=== PATIENT | male | born 1950 ===

== ENCOUNTER 2021-02-11 23:33 | Emergency (ER) | payer MEDICARE, OTHER ==
--- NOTE | 2021-02-12 00:21 | EDM.PDOC ---
ED HPI GENERAL MEDICAL PROBLEM - General Chief Complaint: General Stated Complaint: FEVER COUGH TROUBLE URINATING Time Seen by Provider: 02/11/21 23:44 Source of Information: Reports: Patient, Family ( + son), Old Records (Lab results 01/10/2021) History Limitations: Reports: No Limitations - History of Present Illness INITIAL COMMENTS - FREE TEXT/NARRATIVE: Mr. Hogan is a very pleasant 70-year-old gentleman who now presents the ED due to fatigue, a nonproductive cough, an intermittent fever, and difficulty urinating. He states that he has difficulty initiating urination and has a weak stream. He denies having dysuria, urinary frequency, or urgency. He states that he developed these symptoms in late December, and was then diagnosed with COVID-19 on 01/10/2021. At that time, he was also diagnosed with pneumonia and a UTI, and treated with Augmentin, however, in reviewing his lab work from that time, I see that while his chest x-ray demonstrated a small infiltrate, he did not have leukocytosis, and his urinalysis was not consistent with a UTI. The urine culture ultimately grew mixed arthur consistent with contamination. The patient states that his symptoms have persisted unabated. The patient states that by the time he was diagnosed with COVID-19, he had been symptomatic too long to qualify for treatment with monoclonal antibodies, and that he was not hypoxemic, therefore did not qualify for treatment with corticosteroids. He states that he had more difficulty than usual urinating tonight, that his cough has persisted, and that he had a fever of 101 degrees. The patient's also noted that the patient developed lower extremity edema a few weeks ago. Here in the ED, the patient's initial BP is found to be modestly elevated at 153/80, otherwise, he is hemodynamically stable, afebrile, saturating 95% on room air. He appears to be comfortable while semirecumbent on the gurney, in no acute distress. Throughout the patient's illness, he denies having chest pain or discomfort, palpitations, or dyspnea. He reports that he vomited a few days ago, but none since, and that he is often constipated. He denies having a recent sore throat, ear pain, nasal or sinus congestion, diarrhea, abdominal pain, recent weight gain or weight loss, recent bloody bowel movements or black bowel movements, recent joint aches, headaches, or rashes. The patient's PCP is Elsa Marrero NP. Generalized Pain Score (Numeric/FACES): 3 - Related Data Allergies Allergy/AdvReac Type Severity Reaction Status Date / Time No Known Allergies Allergy Verified 02/11/21 23:50 Home Meds: Home Meds Tamsulosin HCl [Flomax] 1 cap PO QAM #30 cap.er.24h 02/12/21 [Rx] Past Medical History Cardiovascular History: Reports: Hypertension Genitourinary History: Reports: Retention, Urinary Endocrine/Metabolic History: Reports: Diabetes, Type II - Infectious Disease History Infectious Disease History: Reports: Novel Coronavirus (dx'd 01/10/2021) - Past Surgical History HEENT Surgical History: Reports: Detached Retina (right), Radial Keratotomy (right) Social & Family History - Tobacco Use Tobacco Use Status *Q: Former Tobacco User Years of Tobacco use: 18 Packs/Tins Daily: 1 Month/Year Tobacco Last Used: Quit 1984 Tobacco Use Comment: Started smoking 1966 Second Hand Smoke Exposure: No - Caffeine Use Caffeine Use: Reports: Coffee - Alcohol Use Alcohol Use History: Yes Alcohol Use Frequency: Socially - Recreational Drug Use Recreational Drug Use: Yes Drug Use in Last 12 Months: No Recreational Drug Type: Reports: Marijuana/Hashish (last smoked when he was young) - Living Situation & Occupation Living situation: Reports: , with Spouse Occupation: Retired ED ROS GENERAL - Review of Systems Review Of Systems: Comprehensive ROS is negative, except as noted in HPI. ED EXAM, GENERAL - Physical Exam Exam: See Below Exam Limited By: No Limitations General Appearance: Alert, WD/WN, No Apparent Distress Eye Exam: Bilateral Eye: EOMI, Normal Inspection Ears: Normal External Exam, Hearing Grossly Normal Nose: Normal Inspection Throat/Mouth: Normal Inspection, Normal Lips, Normal Voice, No Airway Compromise Head: Atraumatic, Normocephalic Neck: Normal Inspection, Full Range of Motion Respiratory/Chest: No Respiratory Distress, Lungs Clear, Normal Breath Sounds, No Accessory Muscle Use. No: Decreased Breath Sounds, Crackles, Rhonchi, Wheezing, Stridor, Prolonged Expiration Cardiovascular: Normal Peripheral Pulses, Regular Rate, Rhythm, No Gallop, No JVD, No Rub, Systolic Murmur (Grade 2/6, heard best at the left lower sternal border/apex, consistent with tricuspid or mitral regurgitation) Peripheral Pulses: 3+: Radial (L), Radial (R) GI/Abdominal: Normal Bowel Sounds, Soft, Non-Tender, No Organomegaly, No Distention, No Abnormal Bruit, No Mass Back Exam: Normal Inspection, Full Range of Motion, NT Extremities: Normal Inspection, Normal Range of Motion, Normal Capillary Refill, Other (1+ pitting pretibial edema bilaterally) Neurological: Alert, Oriented, Normal Cognition, No Motor/Sensory Deficits Psychiatric: Normal Affect Skin Exam: Warm, Dry, Intact, Normal Color, No Rash #1 Interpretation EKG Date: 02/12/21 Time: 00:23 Rhythm: NSR Rate (Beats/Min): 85 Antonito: Normal P-Wave: Present QRS: Normal ST-T: Normal QT: Normal Comparison: NA - No Prior EKG Course - Vital Signs Last Recorded V/S: Last Vital Signs Temp 37.5 C 02/11/21 23:45 Pulse 98 02/11/21 23:45 Resp 20 02/11/21 23:45 BP 153/80 H 02/11/21 23:45 Pulse Ox 95 02/11/21 23:45 - Orders/Labs/Meds Orders: Active Orders 24 hr Category Date Time Status Bladder Scan [RC] ASDIRECTED Care 02/12/21 00:18 Active EKG Documentation Completion [RC] STAT Care 02/12/21 00:16 Active Insert Zimmerman Catheter [Insert Urinary Catheter] [OM.PC] Care 02/12/21 00:45 Ordered Q24H Urinary Catheter Assessment [RC] ASDIRECTED Care 02/12/21 00:34 Active Ang Chest [CT] Stat Exams 02/12/21 01:14 Taken Chest 2V [CR] Stat Exams 02/12/21 00:15 Taken Sodium Chloride 0.9% [Normal Saline] 1,000 ml Med 02/12/21 01:15 Active IV ASDIRECTED Sodium Chloride 0.9% [Normal Saline] 100 ml Med 02/12/21 01:30 Active IV ASDIRECTED Sodium Chloride 0.9% [Saline Flush] Med 02/12/21 01:30 Active 10 ml FLUSH BOLUS Medication Orders Sodium Chloride (Normal Saline) 1,000 mls @ 150 mls/hr IV ASDIRECTED [facility] Last Admin: 02/12/21 01:35 Dose: 150 mls/hr Documented by: CORINNA Sodium Chloride (Normal Saline) 100 mls @ 60 drops/min IV ASDIRECTED [facility] Sodium Chloride (Sodium Chloride 0.9% 10 Ml Syringe) 10 ml FLUSH BOLUS [facility] Labs: Laboratory Tests 02/12/21 02/12/21 02/12/21 Range/Units 00:28 00:31 00:31 WBC 4.48 (4.23-9.07) K/mm3 RBC 4.21 L (4.63-6.08) M/mm3 Hgb 11.2 L D (13.7-17.5) gm/dl Hct 34.3 L (40.1-51.0) % MCV 81.5 (79.0-92.2) fl MCH 26.6 (25.7-32.2) pg MCHC 32.7 (32.2-35.5) g/dl RDW Std Deviation 41.4 (35.1-43.9) fL Plt Count 243 (163-337) K/mm3 MPV 10.0 (9.4-12.3) fl Neutrophils % (Manual) 62 H (40-60) % Band Neutrophils % 1 (0-10) % Lymphocytes % (Manual) 28 (20-40) % Atypical Lymphs % 0 % Monocytes % (Manual) 7 (2-10) % Eosinophils % (Manual) 2 (0.8-7.0) % Basophils % (Manual) 0 L (0.2-1.2) Platelet Estimate Adequate RBC Morph Comment Normal D-Dimer, Quantitative (0.19-0.50) mg/L Sodium 134 L (136-145) mEq/L Potassium 4.4 (3.5-5.1) mEq/L Chloride 99 (98-107) mEq/L Carbon Dioxide 26 (21-32) mEq/L Anion Gap 13.4 (5-15) BUN 11 (7-18) mg/dL Creatinine 1.2 (0.7-1.3) mg/dL Est Cr Clr Drug Dosing 62.87 mL/min Estimated GFR (MDRD) 60 (>60) mL/min BUN/Creatinine Ratio 9.2 L (14-18) Glucose 270 H (70-99) mg/dL Calcium 8.5 (8.5-10.1) mg/dL Magnesium 2.0 (1.8-2.4) mg/dL Total Bilirubin 0.6 (0.2-1.0) mg/dL AST 36 (15-37) U/L ALT 30 (16-63) U/L Alkaline Phosphatase 65 (46-116) U/L Troponin I < 0.017 (0.00-0.056) ng/mL NT-Pro-B Natriuret Pep (0-125) pg/mL Total Protein 7.0 (6.4-8.2) g/dl Albumin 2.8 L (3.4-5.0) g/dl Globulin 4.2 gm/dL Albumin/Globulin Ratio 0.7 L (1-2) TSH 3rd Generation 0.749 (0.358-3.74) uIU/mL Urine Color Yellow (Yellow) Urine Appearance Clear (Clear) Urine pH 6.5 (5.0-8.0) Ur Specific [place] 1.020 (1.005-1.030) Urine Protein 1+ H (Negative) Urine Glucose (UA) 3+ H (Negative) Urine Ketones Negative (Negative) Urine Occult Blood Negative (Negative) Urine Nitrite Negative (Negative) Urine Bilirubin Negative (Negative) Urine Urobilinogen 2.0 H (0.2-1.0) Ur Leukocyte Esterase Negative (Negative) Urine RBC 0-5 (0-5) /hpf Urine WBC 0-5 (0-5) /hpf Ur Epithelial Cells Not seen (0-5) /hpf Urine Bacteria Few (FEW) /hpf Urine Mucus Not seen (FEW) /hpf Influenza Type A RNA (NEGATIVE) Influenza Type B RNA (NEGATIVE) SARS-CoV-2 RNA (DAR) (NEGATIVE) 02/12/21 02/12/21 02/12/21 Range/Units 00:31 00:31 00:43 WBC (4.23-9.07) K/mm3 RBC (4.63-6.08) M/mm3 Hgb (13.7-17.5) gm/dl Hct (40.1-51.0) % MCV (79.0-92.2) fl MCH (25.7-32.2) pg MCHC (32.2-35.5) g/dl RDW Std Deviation (35.1-43.9) fL Plt Count (163-337) K/mm3 MPV (9.4-12.3) fl Neutrophils % (Manual) (40-60) % Band Neutrophils % (0-10) % Lymphocytes % (Manual) (20-40) % Atypical Lymphs % % Monocytes % (Manual) (2-10) % Eosinophils % (Manual) (0.8-7.0) % Basophils % (Manual) (0.2-1.2) Platelet Estimate RBC Morph Comment D-Dimer, Quantitative 4.51 H (0.19-0.50) mg/L Sodium (136-145) mEq/L Potassium (3.5-5.1) mEq/L Chloride (98-107) mEq/L Carbon Dioxide (21-32) mEq/L Anion Gap (5-15) BUN (7-18) mg/dL Creatinine (0.7-1.3) mg/dL Est Cr Clr Drug Dosing mL/min Estimated GFR (MDRD) (>60) mL/min BUN/Creatinine Ratio (14-18) Glucose (70-99) mg/dL Calcium (8.5-10.1) mg/dL Magnesium (1.8-2.4) mg/dL Total Bilirubin (0.2-1.0) mg/dL AST (15-37) U/L ALT (16-63) U/L Alkaline Phosphatase (46-116) U/L Troponin I (0.00-0.056) ng/mL NT-Pro-B Natriuret Pep 139 H (0-125) pg/mL Total Protein (6.4-8.2) g/dl Albumin (3.4-5.0) g/dl Globulin gm/dL Albumin/Globulin Ratio (1-2) TSH 3rd Generation (0.358-3.74) uIU/mL Urine Color (Yellow) Urine Appearance (Clear) Urine pH (5.0-8.0) Ur Specific [place] (1.005-1.030) Urine Protein (Negative) Urine Glucose (UA) (Negative) Urine Ketones (Negative) Urine Occult Blood (Negative) Urine Nitrite (Negative) Urine Bilirubin (Negative) Urine Urobilinogen (0.2-1.0) Ur Leukocyte Esterase (Negative) Urine RBC (0-5) /hpf Urine WBC (0-5) /hpf Ur Epithelial Cells (0-5) /hpf Urine Bacteria (FEW) /hpf Urine Mucus (FEW) /hpf Influenza Type A RNA Negative (NEGATIVE) Influenza Type B RNA Negative (NEGATIVE) SARS-CoV-2 RNA (DAR) Negative (NEGATIVE) Meds: Medications Generic Name Dose Route Start Last Admin Trade Name Freq PRN Reason Stop Dose Admin Sodium Chloride 1,000 mls @ 150 mls/hr 02/12/21 01:15 02/12/21 01:35 Normal Saline IV 150 mls/hr ASDIRECTED KOLTON Administration Sodium Chloride 100 mls @ 60 drops/min 02/12/21 01:30 Normal Saline IV ASDIRECTED KOLTON Sodium Chloride 10 ml 02/12/21 01:30 Sodium Chloride 0.9% 10 Ml Syringe FLUSH BOLUS KOLTON Discontinued Medications Generic Name Dose Route Start Last Admin Trade Name Freq PRN Reason Stop Dose Admin Iopamidol 100 ml 02/12/21 01:22 Iopamidol 755 Mg/Ml 100 Ml Bottle IVPUSH 02/12/21 01:23 ONETIME ONE Tamsulosin HCl 0.4 mg 02/12/21 00:34 02/12/21 01:35 Tamsulosin 0.4 Mg Cap.Er PO 02/12/21 00:35 0.4 mg ONETIME ONE Administration - Re-Assessments/Exams Free Text/Narrative Re-Assessment/Exam: 02/12/21 00:18 As above, the patient developed fatigue, a dry cough, a fever, and difficulty urinating in late November or early December, and was diagnosed with COVID-19 on 01/10/2021. His symptoms have persisted. His difficulty urinating is worse tonight than usual. He is afebrile. On physical examination, a grade 2/6 systolic murmur is heard best at the left lower sternal border and apex, consistent with either mild tricuspid or mitral valve regurgitation. With respect to his persistent fatigue, nonproductive cough, and intermittent fever, the patient is likely suffering from Ongoing Symptomatic COVID-19, also known as "Long COVID", although it is possible that he has COVID myocarditis. I have ordered a work-up that includes numerous blood tests, a swab for the SARS-CoV-2 virus and influenza A + B viruses, a chest x-ray, and an ECG. With respect to the patient's difficulty urinating, he likely has undiagnosed BPH. I have ordered a bladder scan, and if he has urinary retention, we will need to place a Zimmerman catheter. We will check a urinalysis. 02/12/21 00:34 Notified by Alysha DUMONT that the patient's bladder scan revealed 445 mL, and that he was only able to urinate 20 mL. I have ordered a Zimmerman catheter to leg bag, and the urine sample will be collected from that. I will start the patient on tamsulosin. 02/12/21 01:12 Two-view chest radiograph appears to be grossly normal. The cardiac silhouette is within normal limits. No pulmonary vascular congestion. No pleural effusions. No focal infiltrate. No pneumothorax. Formal read per the Radiologist pending. 02/12/21 01:15 The patient's D-dimer has returned substantially elevated at 4.51. I have ordered a CT angiogram of the chest to evaluate for PE, along with some IV fluid. 02/12/21 01:38 The patient's CBC is remarkable for an H/H slightly depressed at 11.2/34.3, with the remainder of his CBC being unremarkable. His CMP is remarkable for slight hyponatremia of 134, and hyperglycemia of 270, with the remainder of his CMP being unremarkable. His magnesium level is within normal limits of 2.0. His TSH is within normal limits at 0.749. His troponin is undetectably low. His urinalysis is remarkable for 3+ glucose, and is otherwise unremarkable. His swab for the SARS-CoV-2 virus and influenza A + B viruses is negative. 02/12/21 02:52 CT angiogram of the chest is read by Kavita as: Bilateral focal areas of parenchymal opacification is, more pronounced on the left. [sic] 2. No evidence of pulmonary embolus. 02/12/21 03:06 Test results discussed with the patient, his , and son. Since the patient has cleared the SARS-CoV-2 virus, his symptoms of fatigue, nonproductive cough, and intermittent fever appear to be due to Ongoing Symptomatic COVID-19. His urinary retention is most likely due to BPH. I will submit a prescription for tamsulosin to the pharmacy of his choice, and refer him to Dr. Banegas for further evaluation. Departure - Departure Time of Disposition: 03:07 Disposition: Home, Self-Care 01 Condition: Good Clinical Impression: Urinary retention, Hyperglycemia due to type 2 diabetes mellitus, Ongoing symptomatic disease due to COVID-19 virus - Discharge Information *PRESCRIPTION DRUG MONITORING PROGRAM REVIEWED*: Not Applicable *COPY OF PRESCRIPTION DRUG MONITORING REPORT IN PATIENT ALVINO: Not Applicable Prescriptions: Tamsulosin HCl [Flomax] 1 cap PO QAM #30 cap.er.24h Instructions: Indwelling Urinary Catheter Care, Adult, Acute Urinary Retention, Male, [id number] Referrals: Elsa Marrero NP [Primary Care Provider] - Olayinka Banegas MD [Ordering Only Provider] - Forms: ED Department Discharge Additional Instructions: You were seen in the emergency room for persistent fatigue, a dry cough, i ntermittent fever, and difficulty urinating, after being diagnosed with COVID-19 on 01/10/2021. Work-up in the ER included a bladder scan, numerous blood tests, a urinalysis, a swab for the SARS-CoV-2 virus and influenza A + B viruses, a chest x-ray, a CT angiogram of your chest, and an ECG. The bladder scan revealed 445 mL of retained urine, therefore a Zimmerman catheter was placed to a leg bag. Drain the leg bag frequently, and make sure that the bag is below the level of your bladder when you sleep, so that urine does not backflow into your bladder. A prescription for the prostate medicine tamsulosin (Flomax) has been sent to the [facility] in [place]. Take 1 tablet of tamsulosin every morning, starting tomorrow morning, 02/13/2021, as prescribed. Follow-up with the Urologist Dr. Olayinka Banegas, in [place], at the next available appointment. Don't forget that [place] is 1 hour ahead of us. Your blood sugar was found to be elevated at 270. The remainder of your work-up was unremarkable. You do not have pneumonia. You do not have a blood clot in your lungs. You have not suffered a heart attack. You are not in congestive heart failure. You are not hypothyroid. You do not have a urinary tract infection. Based on your history, physical exam, and ER tests, your fatigue, cough, and intermittent fever are most likely due to Ongoing Symptomatic COVID-19, also known as "Long-COVID". As discussed, it is not known how long symptoms due to Ongoing Symptomatic COVID-19 can last. We recommend that you follow-up with your PCP, Elsa Marrero NP, in that regard. If any other problems, please do not hesitate to return to the ER. Sepsis Event Note (ED) - Evaluation Sepsis Screening Result: No Definite Risk - Focused Exam Vital Signs: Vital Signs Temp Pulse Resp BP Pulse Ox 02/11/21 23:45 37.5 C 98 20 153/80 H 95 - My Orders Last 24 Hours: My Active Orders 02/12/21 00:15 Chest 2V [CR] Stat 02/12/21 00:16 EKG Documentation Completion [RC] STAT 02/12/21 00:18 Bladder Scan [RC] ASDIRECTED 02/12/21 00:34 Urinary Catheter Assessment [RC] ASDIRECTED 02/12/21 00:45 Insert Zimmerman Catheter [Insert Urinary Catheter] [OM.PC] Q24H 02/12/21 01:14 Ang Chest [CT] Stat 02/12/21 01:15 Sodium Chloride 0.9% [Normal Saline] 1,000 ml IV ASDIRECTED 02/12/21 01:30 Sodium Chloride 0.9% [Normal Saline] 100 ml IV ASDIRECTED Sodium Chloride 0.9% [Saline Flush] 10 ml FLUSH BOLUS - Assessment/Plan Last 24 Hours: My Active Orders 02/12/21 00:15 Chest 2V [CR] Stat 02/12/21 00:16 EKG Documentation Completion [RC] STAT 02/12/21 00:18 Bladder Scan [RC] ASDIRECTED 02/12/21 00:34 Urinary Catheter Assessment [RC] ASDIRECTED 02/12/21 00:45 Insert Zimmerman Catheter [Insert Urinary Catheter] [OM.PC] Q24H 02/12/21 01:14 Ang Chest [CT] Stat 02/12/21 01:15 Sodium Chloride 0.9% [Normal Saline] 1,000 ml IV ASDIRECTED 02/12/21 01:30 Sodium Chloride 0.9% [Normal Saline] 100 ml IV ASDIRECTED Sodium Chloride 0.9% [Saline Flush] 10 ml FLUSH BOLUS
[2021-02-12] MEDS ORDERED: Tamsulosin 0.4 MG Cap.ER PO ONE (00:34)
[2021-02-12] MEDS ORDERED: Sodium Chloride 0.9% 1,000 ML IV SCH (01:15)
[2021-02-12] MEDS ORDERED: Iopamidol 755 Mg/ML 100 ML Bottle IVPUSH ONE (01:22)
[2021-02-12] MEDS ORDERED: Sodium Chloride 0.9% 10 ML Syringe FLUSH SCH (01:30)
[2021-02-12] MEDS ORDERED: Sodium Chloride 0.9% 100 ML IV SCH (01:30)
[2021-02-12 01:34] LABS: CORONAVIRUS COVID-19 NAA NEGATIVE (NEGATIVE)
--- NOTE | 2021-02-12 06:57 | CT ---
CT chest Technique: Multiple axial sections through the chest were obtained. Intravenous contrast was utilized. Study has been performed as a pulmonary angiogram protocol. Comparison: Prior chest x-ray performed earlier on the same day (12:35 AM). Findings: Mediastinum shows no adenopathy. Pulmonary arteries are fairly well opacified. No filling defects are seen to indicate pulmonary embolism. Thoracic aorta shows no aneurysm. No axillary adenopathy is seen. No pericardial thickening is seen. Visualized upper abdominal structures show no acute abnormality. Lung window settings show scattered areas of parenchymal density within both upper lungs and both lower lungs which are worse on the left side. No pleural effusions are seen. Bone window settings were reviewed which show no acute osseous abnormality. Impression: 1. Mild areas of parenchymal density within both lungs, worse on the left side. These findings are most likely due to residual of previous Covid 19 disease. 2. No findings of pulmonary embolism. No other acute abnormality is appreciated. Diagnostic code #3 I agree with preliminary report from [facility], finalized on 02/12/21, 3:50 AM CDT, code 1
--- NOTE | 2021-02-12 07:00 | CR ---
Chest: 2 views of the chest were obtained. Comparison: Prior chest x-ray of 01/10/[address] study. Heart size and mediastinum are within normal limits. Patchy areas of increased density are seen within the left lung. Minimal density is noted within the right lung base. Findings are felt to be slightly improved from prior exam. Lungs otherwise are clear. Bony structures are unremarkable. Impression: 1. Areas of increased density within both sides of the chest, worse on the left side. Findings are minimally improved from prior chest x-ray presumably due to residual Covid 19 pneumonia. 2. Nothing acute is otherwise seen. Diagnostic code #3
== END 2021-02-12 03:30 | disposition home or self-care (01) ==
LOC: JD.ED 23:33
DX: U07.1 COVID-19 (principal); E11.65 Type 2 diabetes mellitus with hyperglycemia; R33.9 Retention of urine, unspecified; I10 Essential (primary) hypertension; Z87.891 Personal history of nicotine dependence
CPT/HCPCS: 0240U; 36415; 51702; 51798; 71046; 71275; 80053; 81001; 83735; 83880; 84443; 84484; 85007; 85027; 85379; 93005; 99284; A9270; J7030; 93010

== ENCOUNTER 2021-05-15 10:44 | Emergency (ER) | payer MEDICARE, OTHER ==
--- NOTE | 2021-05-15 11:12 | EDM.PDOC ---
ED HPI GENERAL MEDICAL PROBLEM - General Chief Complaint: Neurological Problem Stated Complaint: POSSIBLE STROKE Time Seen by Provider: 05/15/21 10:50 Source of Information: Reports: Patient History Limitations: Reports: No Limitations - History of Present Illness INITIAL COMMENTS - FREE TEXT/NARRATIVE: 70-year-old male presents to the ED in the accompaniment of his . He did not want to come to the ED since he was feeling better. His reports they were making a bed at home around 0630 hrs. this morning when he all of a sudden didn't seem to understand her verbal communication. When she looked at him he was staring off into space as if confused and lost track of what he was trying to do. He could walk and she let them away from the bed and it took about 5 to 6 minutes before he started to come around and had some atypical movements of his arms like he was marching and then speech was garbled and confusional and then returned to normal within a period of 5 to 10 minutes. He has been having quite bad right-sided headaches. His reports that he has had several confusional events during the months of February and March from which he recovers. Of note he had a really bad case of COVID-19 illness the early part of January of this year which took several weeks to improve. She reports that he went to fill the car with gas and stuck his credit card in the slot that provides the receipt for gas he did not recognize that there was a problem. She also reports that her daughter's wedding in early February they were supposed to get in line for a meal and then he simply wandered off and got lost. She had to go and find them and then after this he was able to give a good speech at the wedding. It has been suggested to the patient that he has "Covid fog" he has no neurological deficit on examination in terms of cranial nerves are normal as well. He is alert oriented and knew me when I walked in the room since we have met many times in the past. His last known well time or when this event occurred was around 0630 hrs. this morning. He has no history of recent head trauma. He has been complaining of right-sided headache very intensely off and on for at least 2 weeks. He has been taking a lot of aspirin tablets because of the headache. He denies any changes in his visual acuity. No problems walking and he does not feel off balance. No nausea or vomiting Onset: Today, Sudden Onset Date: 05/15/21 Onset Time: 06:30 (Occurred while they were making a bed together) Duration: Hour(s):, Other (No further neurological symptoms since the initial event at 0630 hrs. this morning) Location: Reports: Head (Right-sided frontal and occipital headache) Quality: Reports: Ache, Throbbing Severity: Moderate (Sometimes the headaches are very intense.) Improves with: Reports: None Worsens with: Reports: None Context: Denies: Activity, Exercise, Lifting, Sick Contact, Trauma, Other Associated Symptoms: Reports: Headaches (Quite bad severe right-sided headaches for the last 2 weeks or more.), Loss of Appetite, Malaise (During the COVID-19 illness he lost 20 pounds of weight). Denies: No Other Symptoms, Confusion, Chest Pain, Cough, cough w sputum, Diaphoresis, Nausea/Vomiting, Rash, Seizure, Shortness of Breath, Syncope, Weakness Treatments FRAMING CONSULTANT: Reports: Other (see below) (none) - Related Data Allergies Allergy/AdvReac Type Severity Reaction Status Date / Time No Known Allergies Allergy Verified 05/15/21 10:52 Home Meds: Home Meds Tamsulosin HCl [Flomax] 1 cap PO QAM #30 cap.er.24h 02/12/21 [Rx] Cefdinir [Omnicef] 300 mg PO BID #24 cap 05/15/21 [Rx] Enalapril [Vasotec] 5 mg PO DAILY 05/15/21 [History] Insulin Glargine,Hum.Rec.Anlog [Basaglar Kwikpen U-100] 45 unit SQ DAILY 05/15/21 [History] Omeprazole Magnesium [Prilosec Otc] 20 mg PO DAILY #42 tablet. 05/15/21 [Rx] dexAMETHasone [Dexamethasone] 4 mg PO QID #40 tablet 05/15/21 [Rx] levETIRAcetam [Keppra] 1,000 mg PO BID #60 tablet 05/15/21 [Rx] metFORMIN [Glucophage] 1,000 mg PO DAILY 05/15/21 [History] Past Medical History Cardiovascular History: Reports: Hypertension Genitourinary History: Reports: BPH (Recently diagnosed with BPH with acute urinary retention. Has been seen by urology services and placed on Flomax 0.4 mg twice daily), Retention, Urinary Musculoskeletal History: Reports: Arthritis Endocrine/Metabolic History: Reports: Diabetes, Type II, Obesity/BMI 30+ - Infectious Disease History Infectious Disease History: Reports: Novel Coronavirus - Past Surgical History HEENT Surgical History: Reports: Detached Retina, Radial Keratotomy Social & Family History - Tobacco Use Tobacco Use Status *Q: Former Tobacco User Used Tobacco, but Quit: Yes Month/Year Tobacco Last Used: 09/1984 - Caffeine Use Caffeine Use: Reports: Coffee - Recreational Drug Use Recreational Drug Use: No - Living Situation & Occupation Living situation: Reports: , with Spouse Occupation: Retired ED ROS GENERAL - Review of Systems Review Of Systems: See Below Constitutional: Reports: Malaise, Weakness, Fatigue (Since having the COVID-19 illness.), Decreased Appetite, Other (Slowly gaining weight back). Denies: Fever, Chills HEENT: Reports: Glasses Respiratory: Reports: Cough (Vaginal nonproductive cough). Denies: Wheezing ( which has persisted since COVID-19 illness) Cardiovascular: Reports: Blood Pressure Problem. Denies: Chest Pain, Claudication, Dyspnea on Exertion, Edema, Lightheadedness, Orthopnea (Mild hypertension), Palpitations Endocrine: Reports: Fatigue GI/Abdominal: Reports: Decreased Appetite : Reports: Frequency, Other (Nocturia down to 1 or 2 times nightly.) Musculoskeletal: Reports: Neck Pain ( pain at the base of his neck. Base of neck pain), Shoulder Pain (Right trapezius muscle), Back Pain Skin: Reports: No Symptoms Neurological: Reports: Confusion (Intermittent bouts of confusion dating back to at least early February.), Headache (Complaining of intermittent right-sided headaches for the last 2). Denies: Numbness, Paresthesia, Pre-Existing Deficit, Seizure, Syncope, Tingling ( weeks or more.), Tremors, Trouble Speaking, Difficulty Walking, Weakness Psychiatric: Reports: No Symptoms Hematologic/Lymphatic: Reports: No Symptoms Immunologic: Reports: No Symptoms ED EXAM, NEURO - Physical Exam Exam: See Below Exam Limited By: No Limitations General Appearance: Alert, WD/WN, No Apparent Distress, Anxious, Other (Minimally anxious. Temperature is 36.0 with a heart rate of 65 and sinus respiratory to 16 BP is 153/78 O2 sats 98% room air) Eye Exam: Bilateral Eye: Normal Inspection, PERRL Throat/Mouth: Normal Inspection, Normal Lips, Normal Oropharynx Head Exam: Atraumatic, Normocephalic Neck: Normal Inspection, Tender Lateral (Tender lateral aspect of the right neck without muscle spasm. Some tenderness and spasm along the superior belly of the trapezius muscle right side). No: Carotid Bruit, Lymphadenopathy (L), Lymphadenopathy (R) Respiratory/Chest: No Respiratory Distress, Lungs Clear, Normal Breath Sounds, No Accessory Muscle Use Cardiovascular: Normal Peripheral Pulses, Regular Rate, Rhythm, No Edema, No Gallop, No Murmur, No Rub, Other (He was told he had a heart murmur in the past I did not hear one.. He does have crisp snapping closure of the aortic valve) GI/Abdominal: Normal Bowel Sounds, Soft, Non-Tender, No Organomegaly, No Mass, Pelvis Stable (Male) Exam: No Hernia Neurological: Alert, Normal Mood/Affect, Normal Dorsiflexion, CN II-XII Intact, Normal Gait, Normal Reflexes, No Motor/Sensory Deficits, Oriented x 3, Other (No pronator drift with palms upwards). No: Abnormal Finger to Nose, Difficulty Walking DTR: 1+: Bicep (R), Bicep (L), 2+: Patella (R), Patella (L), Achilles (R), Achilles (L) Back Exam: Normal Inspection Extremities: Normal Inspection, Normal Range of Motion, No Pedal Edema Psychiatric: Normal Affect, Normal Mood Skin Exam: Warm, Dry, Intact, Normal Color, No Rash #1 Interpretation EKG Date: 05/15/21 Time: 10:53 Rhythm: NSR Rate (Beats/Min): 63 [place]: Normal P-Wave: Present QRS: Normal ST-T: Other (Nonspecific T wave flattening in aVL only) QT: Normal EKG Interpretation Comments: Essentially normal ECG Course - Vital Signs Last Recorded V/S: Last Vital Signs Temp 36.0 C L 05/15/21 10:49 Pulse 65 05/15/21 10:49 Resp 16 05/15/21 10:49 BP 153/78 H 05/15/21 10:49 Pulse Ox 98 05/15/21 10:49 - Orders/Labs/Meds Orders: Active Orders 24 hr Category Date Time Status CULTURE URINE [MREF] Stat Lab 05/15/21 11:08 Received Labs: Laboratory Tests 05/15/21 05/15/21 05/15/21 Range/Units 10:50 10:50 10:50 WBC 5.81 (4.23-9.07) K/mm3 RBC 5.46 (4.63-6.08) M/mm3 Hgb 14.0 D (13.7-17.5) gm/dl Hct 43.2 (40.1-51.0) % MCV 79.1 (79.0-92.2) fl MCH 25.6 L (25.7-32.2) pg MCHC 32.4 (32.2-35.5) g/dl RDW Std Deviation 47.1 H (35.1-43.9) fL Plt Count 168 (163-337) K/mm3 MPV 10.4 (9.4-12.3) fl Neut % (Auto) 48.4 (34.0-67.9) % Lymph % (Auto) 39.2 (21.8-53.1) % [place] % (Auto) 7.4 (5.3-12.2) % Eos % (Auto) 4.1 (0.8-7.0) Baso % (Auto) 0.7 (0.1-1.2) % Neut # (Auto) 2.81 (1.78-5.38) K/mm3 Lymph # (Auto) 2.28 (1.32-3.57) K/mm3 [place] # (Auto) 0.43 (0.30-0.82) K/mm3 Eos # (Auto) 0.24 (0.04-0.54) K/mm3 Baso # (Auto) 0.04 (0.01-0.08) K/mm3 ESR (0-15) mm/hr PT 10.3 (9.7-12.0) SECONDS INR 0.96 APTT 27.1 (21.7-31.4) SECONDS D-Dimer, Quantitative (0.19-0.50) mg/L Sodium (136-145) mEq/L Potassium (3.5-5.1) mEq/L Chloride (98-107) mEq/L Carbon Dioxide (21-32) mEq/L Anion Gap (5-15) BUN (7-18) mg/dL Creatinine (0.7-1.3) mg/dL Est Cr Clr Drug Dosing Estimated GFR (MDRD) (>60) mL/min BUN/Creatinine Ratio (14-18) Glucose (70-99) mg/dL POC Glucose 190 H (70-99) mg/dL Calcium (8.5-10.1) mg/dL Magnesium (1.8-2.4) mg/dL Total Bilirubin (0.2-1.0) mg/dL AST (15-37) U/L ALT (16-63) U/L Alkaline Phosphatase (46-116) U/L Troponin I (0.00-0.056) ng/mL C-Reactive Protein (<1.0) mg/dL NT-Pro-B Natriuret Pep (0-125) pg/mL Total Protein (6.4-8.2) g/dl Albumin (3.4-5.0) g/dl Globulin gm/dL Albumin/Globulin Ratio (1-2) Urine Color (Yellow) Urine Appearance (Clear) Urine pH (5.0-8.0) Ur Specific [place] (1.005-1.030) Urine Protein (Negative) Urine Glucose (UA) (Negative) Urine Ketones (Negative) Urine Occult Blood (Negative) Urine Nitrite (Negative) Urine Bilirubin (Negative) Urine Urobilinogen (0.2-1.0) Ur Leukocyte Esterase (Negative) Urine RBC (0-5) /hpf Urine WBC (0-5) /hpf Ur Squamous Epith Cells (0-5) /hpf Amorphous Sediment (NOT SEEN) /hpf Urine Bacteria (FEW) /hpf Urine Mucus (FEW) /hpf SARS-CoV-2 RNA (DAR) (NEGATIVE) 05/15/21 05/15/21 05/15/21 Range/Units 10:50 10:50 10:50 WBC (4.23-9.07) K/mm3 RBC (4.63-6.08) M/mm3 Hgb (13.7-17.5) gm/dl Hct (40.1-51.0) % MCV (79.0-92.2) fl MCH (25.7-32.2) pg MCHC (32.2-35.5) g/dl RDW Std Deviation (35.1-43.9) fL Plt Count (163-337) K/mm3 MPV (9.4-12.3) fl Neut % (Auto) (34.0-67.9) % Lymph % (Auto) (21.8-53.1) % [place] % (Auto) (5.3-12.2) % Eos % (Auto) (0.8-7.0) Baso % (Auto) (0.1-1.2) % Neut # (Auto) (1.78-5.38) K/mm3 Lymph # (Auto) (1.32-3.57) K/mm3 [place] # (Auto) (0.30-0.82) K/mm3 Eos # (Auto) (0.04-0.54) K/mm3 Baso # (Auto) (0.01-0.08) K/mm3 ESR 54 H (0-15) mm/hr PT (9.7-12.0) SECONDS INR APTT (21.7-31.4) SECONDS D-Dimer, Quantitative 0.98 H (0.19-0.50) mg/L Sodium 137 (136-145) mEq/L Potassium 4.4 (3.5-5.1) mEq/L Chloride 103 (98-107) mEq/L Carbon Dioxide 29 (21-32) mEq/L Anion Gap 9.4 (5-15) BUN 15 (7-18) mg/dL Creatinine 1.1 (0.7-1.3) mg/dL Est Cr Clr Drug Dosing TNP Estimated GFR (MDRD) > 60 (>60) mL/min BUN/Creatinine Ratio 13.6 L (14-18) Glucose 211 H (70-99) mg/dL POC Glucose (70-99) mg/dL Calcium 9.1 (8.5-10.1) mg/dL Magnesium 2.0 (1.8-2.4) mg/dL Total Bilirubin 0.5 (0.2-1.0) mg/dL AST 27 (15-37) U/L ALT 31 (16-63) U/L Alkaline Phosphatase 72 (46-116) U/L Troponin I < 0.017 (0.00-0.056) ng/mL C-Reactive Protein 0.5 (<1.0) mg/dL NT-Pro-B Natriuret Pep (0-125) pg/mL Total Protein 7.9 (6.4-8.2) g/dl Albumin 3.6 (3.4-5.0) g/dl Globulin 4.3 gm/dL Albumin/Globulin Ratio 0.8 L (1-2) Urine Color (Yellow) Urine Appearance (Clear) Urine pH (5.0-8.0) Ur Specific [place] (1.005-1.030) Urine Protein (Negative) Urine Glucose (UA) (Negative) Urine Ketones (Negative) Urine Occult Blood (Negative) Urine Nitrite (Negative) Urine Bilirubin (Negative) Urine Urobilinogen (0.2-1.0) Ur Leukocyte Esterase (Negative) Urine RBC (0-5) /hpf Urine WBC (0-5) /hpf Ur Squamous Epith Cells (0-5) /hpf Amorphous Sediment (NOT SEEN) /hpf Urine Bacteria (FEW) /hpf Urine Mucus (FEW) /hpf SARS-CoV-2 RNA (DAR) (NEGATIVE) 05/15/21 05/15/21 05/15/21 Range/Units 10:50 11:08 14:39 WBC (4.23-9.07) K/mm3 RBC (4.63-6.08) M/mm3 Hgb (13.7-17.5) gm/dl Hct (40.1-51.0) % MCV (79.0-92.2) fl MCH (25.7-32.2) pg MCHC (32.2-35.5) g/dl RDW Std Deviation (35.1-43.9) fL Plt Count (163-337) K/mm3 MPV (9.4-12.3) fl Neut % (Auto) (34.0-67.9) % Lymph % (Auto) (21.8-53.1) % [place] % (Auto) (5.3-12.2) % Eos % (Auto) (0.8-7.0) Baso % (Auto) (0.1-1.2) % Neut # (Auto) (1.78-5.38) K/mm3 Lymph # (Auto) (1.32-3.57) K/mm3 [place] # (Auto) (0.30-0.82) K/mm3 Eos # (Auto) (0.04-0.54) K/mm3 Baso # (Auto) (0.01-0.08) K/mm3 ESR (0-15) mm/hr PT (9.7-12.0) SECONDS INR APTT (21.7-31.4) SECONDS D-Dimer, Quantitative (0.19-0.50) mg/L Sodium (136-145) mEq/L Potassium (3.5-5.1) mEq/L Chloride (98-107) mEq/L Carbon Dioxide (21-32) mEq/L Anion Gap (5-15) BUN (7-18) mg/dL Creatinine (0.7-1.3) mg/dL Est Cr Clr Drug Dosing Estimated GFR (MDRD) (>60) mL/min BUN/Creatinine Ratio (14-18) Glucose (70-99) mg/dL POC Glucose (70-99) mg/dL Calcium (8.5-10.1) mg/dL Magnesium (1.8-2.4) mg/dL Total Bilirubin (0.2-1.0) mg/dL AST (15-37) U/L ALT (16-63) U/L Alkaline Phosphatase (46-116) U/L Troponin I (0.00-0.056) ng/mL C-Reactive Protein (<1.0) mg/dL NT-Pro-B Natriuret Pep 45 (0-125) pg/mL Total Protein (6.4-8.2) g/dl Albumin (3.4-5.0) g/dl Globulin gm/dL Albumin/Globulin Ratio (1-2) Urine Color Light yellow (Yellow) Urine Appearance Clear (Clear) Urine pH 7.0 (5.0-8.0) Ur Specific [place] 1.020 (1.005-1.030) Urine Protein Negative (Negative) Urine Glucose (UA) 2+ H (Negative) Urine Ketones Negative (Negative) Urine Occult Blood Trace-intact H (Negative) Urine Nitrite Positive H (Negative) Urine Bilirubin Negative (Negative) Urine Urobilinogen 0.2 (0.2-1.0) Ur Leukocyte Esterase 3+ H (Negative) Urine RBC 10-20 H (0-5) /hpf Urine WBC 20-30 H (0-5) /hpf Ur Squamous Epith Cells 0-5 (0-5) /hpf Amorphous Sediment Moderate H (NOT SEEN) /hpf Urine Bacteria Many H (FEW) /hpf Urine Mucus Not seen (FEW) /hpf SARS-CoV-2 RNA (DAR) Negative (NEGATIVE) Meds: Medications Discontinued Medications Generic Name Dose Route Start Last Admin Trade Name Semaj PRN Reason Stop Dose Admin Dexamethasone 6 mg 05/15/21 14:23 05/15/21 15:03 Dexamethasone 10 Mg/Ml Sdv IVPUSH 05/15/21 14:24 6 mg ONETIME ONE Administration Gadobenate Dimeglumine 19 ml 05/15/21 15:23 05/15/21 15:46 Gadobenate Dimeglumine 529 Mg/Ml 20 Ml Sdv IVPUSH 05/15/21 15:24 19 ml ONETIME ONE Administration Sodium Chloride 1,000 mls @ 100 mls/hr 05/15/21 11:15 05/15/21 13:02 Normal Saline IV 100 mls/hr ASDIRECTED KOLTON Administration Ceftriaxone Sodium 2 gm/ 100 mls @ 200 mls/hr 05/15/21 12:42 05/15/21 13:07 Sodium Chloride IV 05/15/21 13:11 200 mls/hr ONETIME ONE Administration Levetiracetam 500 mg 05/15/21 14:23 05/15/21 15:03 Levetiracetam Soln 500 Mg/5 Ml Cup PO 05/15/21 14:24 500 mg NOW ONE Administration Sodium Chloride 10 ml 05/15/21 15:30 05/15/21 15:46 Sodium Chloride 0.9% 10 Ml Syringe FLUSH 10 ml ASDIRECTED KOLTON Administration - Radiology Interpretation Free Text/Narrative:: 70-year-old male presents to the ED for evaluation of transient confusional event this morning with garbled speech that lasted between 5 and 10 minutes which we would classify as a TIA. His reports that he has had numerous confusional states dating back to at least early February. He had terrible COVID-19 illness diagnosed beginning of January 26 and was felt to be suffering from Covid fog. He has had no falls or trauma. He had no neurological deficit at the time of examination. His blood pressure is normal. Plan CT head to be done. Routine labs to be carried out chest x-ray and ECG. - Re-Assessments/Exams Free Text/Narrative Re-Assessment/Exam: 05/15/21: 11:10: CT of the brain has been completed without contrast. There is a mass in the right frontal brain that spans up to 8 cm in length and measures up to 4.8 cm in width and 3.4 cm thick. Mass is mostly isodense to rowell matter and is more convincing for a nondural based extra-axial mass than an intra-axial mass. The falx cerebri is displaced up to 1.8 cm to the left, this causes severe compression of the frontal horns of the bilateral ventricles. There are serpiginous linear hyperdensities believed to represent calcification within the substance of the mass and extensive low signal throughout the underlying subcortical white matter reflecting edema. The mass is estimated to measure at least 6 cm in all dimensions. Normal cerebellum and brainstem. 05/15/21 12:39 . Labs reveal a normal white count at 5.81. The auto differential shows 48.4% neutrophils and 39.2% lymphocytes. Hemoglobin is 14.0 with hematocrit of 43.2 and MCV slightly low at 79.1. Sed rate is 54. PT is 10.3 with an INR of 0.96 and a PTT of 27.1. D-dimer is elevated at 0.98. Sodium is 137 with a potassium of 4.4 chloride 103 with a bicarb of 29 anion gap is 9.4 BUN is 15 with a creatinine of 1.1 and a GFR greater than 60. Glucose is 211 bedside glucose was 190. Patient does have mild diabetes. Calcium is 9.1 magnesium is 2.0 liver function is normal. Troponin I is less than 0.017 C- reactive protein is 0.5 BNP is 45 total protein 7.9 with albumin fraction of 3.6. The urinalysis shows 2+ glucosuria trace of occult blood positive nitrates and 3+ leukocyte esterase. There are 10-20 RBCs per high-power field and 20-30 white blood cells per high-power field suggesting urinary tract infection there is also moderate amorphous sediment and many bacteria appreciated. Urine culture will be obtained. 05/15/21 12:39 I have spoken with the 1 call service at [facility] in [place] and they are on diversion. I subsequently have also spoken with 1 call service at [facility] in [place] and 1: Nurse was able to direct me to Dr. Silverio Callejas and --from the department of neurosurgery. Dr. Cortez advised starting the patient on dexamethasone 4 mg 4 times daily to reduce the edema caused by tumor and Keppra 1000 mg twice daily for seizure prevention. I spoke with Susannah Callejas's nurse and after she receives the information provided by us she will have him look at the patient's imaging studies from today and call the patient with a potential appointment time. There is potential to get an MRI of the brain with and without contrast later this afternoon in our department and I will forward these to [facility] in [place]. I have already sent the CT images and chest x-ray that were done earlier today. 05/15/21 15:19 Patient is going to the MRI suite at this time 05/15/21: 16:05: MRI of the brain has been done without and with intravenous contrast. Findings there is a large mass noted within the right frontal region. There is sub-Folstein extension of this mass being seen. This mass shows diffuse enhancement. AP measurement is slightly oblique orientation is 8.7 cm, transverse measurement is 7.5 cm and AP measurement is 6.7 cm. Vasogenic edema is seen within the adjacent white matter. There is midline shift on the MRI of approximately 1.5 cm. No other abnormal parenchymal signs or signals are identified. Visualized mastoid sinuses are within normal limits. Retention cyst is noted within the left maxillary sinus measuring 1.4 cm. 05/15/21 16:19 I have discussed the findings of the MRI with the patient and his . The plan will be to await a phone call from Dr. Callejas neurosurgeon at [facility] in [place] and the will drive him down there 1 appointment time has been arranged. In the interim he will be placed on dexamethasone 4 mg 4 times daily with Keppra starting with 500 mg twice daily for 4 days and then increasing to 1000 mg twice daily twice daily. Omeprazole 20 mg once daily at bedtime for GI protection. Omnicef 300 mg twice daily for urinary tract infection although his UTI is most likely from prostatitis which would be better served by Levaquin or doxycycline long-term but can await treatment with these antibiotics after he deals with his intracranial mass. Departure - Departure Time of Disposition: 16:22 Disposition: Home, Self-Care 01 Condition: Fair Clinical Impression: Generalized headaches, Brain tumor, Hyperglycemia due to type 2 diabetes mellitus Complex partial seizures Qualifiers: Epilepsy type: partial symptomatic Intractability: not intractable Status epilepticus: without status epilepticus Qualified Code(s): G40.209 - Localization-related (focal) (partial) symptomatic epilepsy and epileptic syndromes with complex partial seizures, not intractable, without status epilepticus Urinary tract infection Qualifiers: Urinary tract infection type: site unspecified Hematuria presence: without hematuria Qualified Code(s): N39.0 - Urinary tract infection, site not specified - Discharge Information *PRESCRIPTION DRUG MONITORING PROGRAM REVIEWED*: Not Applicable *COPY OF PRESCRIPTION DRUG MONITORING REPORT IN PATIENT ALVINO: Not Applicable Prescriptions: dexAMETHasone [Dexamethasone] 4 mg PO QID #40 tablet levETIRAcetam [Keppra] 1,000 mg PO BID #60 tablet Cefdinir [Omnicef] 300 mg PO BID #24 cap Omeprazole Magnesium [Prilosec Otc] 20 mg PO DAILY #42 tablet. Instructions: Epilepsy, [id number], Urinary Tract Infection, Adult, Seizure, Adult Referrals: Elsa Marrero [employer] [Primary Care Provider] - Forms: ED Department Discharge Additional Instructions: Evaluation in the emergency room today in regards to transient confusional events by staring off into space and then some atypical movements of your upper extremities and transient garbled speech for which the symptoms resolved in 5 to 8 minutes or so. History suggest recurrent confusional type events dating back to at least the beginning of February. Due to potential for a stroke this morning or TIA a CT of the head was performed which reveals a mass with strands of calcification within it within the right frontal cortex of the brain indicating a brain tumor is present. There is a large amount of surrounding swelling or edema around this tumor with finds that it is compressing part of the lateral ventricles that make cerebrospinal fluid and pushing the midline over almost 2 cm in the frontal brain. This appears to be the cause of your atypical seizures which we call complex partial seizures. It is also the cause of your recurrent right-sided hemicranial headaches. Neurosurgery advised that you start antiseizure medication Keppra 1000 mg twice daily which will make you quite sleepy for the first 2 or 3 days of treatment. Suggest 500 mg or 1/2 tablet twice a day for the first 4 days and then increase to 1000 mg twice daily you were given 500 mg orally in the emergency department and should take at 1000 mg before bed tonight. Second medication is dexamethasone 4 mg tablets to be taken 4 times daily ideally about 6 hours apart to help reduce the swelling around the tumor in the brain which hopefully will prevent further seizure activity and improve your headaches. Does use of Prilosec 20 mg at bedtime for GI protection to prevent ulcer formation from high steroid dose. Fourth medicine will be Omnicef 300 mg tablet twice daily which is an antibiotic for urinary tract infection for the next 8 days. It is highly suspect that your current infection is coming out of your prostate gland which may require alternative antibiotic treatment such as Levaquin 500 mg daily or doxycycline 100 mg twice daily for a lengthy period of time to eradicate infection. The plan will be to have you seen by Dr. Silverio Callejas who is a neurosurgeon in [place] who specializes in brain tumors. I have sent your information to their clinic and they tentatively will call you tomorrow after he is in clinic and is able to look at your CT and MRI of the brain we did today. Sepsis Event Note (ED) - Evaluation Sepsis Screening Result: No Definite Risk - Focused Exam Vital Signs: Vital Signs Temp Pulse Resp BP Pulse Ox 05/15/21 10:49 36.0 C L 65 16 153/78 H 98 - My Orders Last 24 Hours: My Active Orders 05/15/21 11:08 CULTURE URINE [MREF] Stat - Assessment/Plan Last 24 Hours: My Active Orders 05/15/21 11:08 CULTURE URINE [MREF] Stat
[2021-05-15] MEDS ORDERED: Sodium Chloride 0.9% 1,000 ML IV SCH (11:15)
[2021-05-15] MEDS ORDERED: cefTRIAXone 2 GM in Sodium Chloride 0.9% 100 ML IV ONE (12:42)
--- NOTE | 2021-05-15 13:05 | CT ---
Head CT Technique: Multiple axial sections through the brain were obtained. Intravenous contrast was not utilized. Reconstructed coronal and sagittal images were obtained. Comparison: No prior intracranial imaging is available. Findings: Large right frontal lobe mass is seen. There are areas of increased density within this mass which most likely represent areas of calcification. Vasogenic edema is seen within the brain parenchyma adjacent to this mass. There is midline shift being seen which measures about 9 mm. Effacement of the adjacent lateral ventricles are seen. There is mild subfalcine herniation also being noted to the left side. No other abnormal parenchymal densities are seen. Ventricles show no dilatation. Bone window settings were reviewed which show no acute calvarial abnormality. Visualized paranasal sinuses and mastoid sinuses are clear. Impression: 1. Large frontal lobe mass. Areas of calcification are felt to be present within the mass. Mass causes midline shift as well as subfalcine herniation. Vasogenic edema is also noted. 2. Consider brain MRI to further evaluate. 3. Neurosurgical consultation is also recommended. Diagnostic code #9 I agree with preliminary report from [facility], finalized on 05/15/21, 12:54 PM CDT
--- NOTE | 2021-05-15 13:06 | CR ---
Chest: Portable view of the chest was obtained. Comparison: Prior chest x-ray 02/12/21. Heart size and mediastinum are normal. Slight scarring is seen within the right lung base. Slight scarring is seen within the left upper lung. Lungs show no definite acute parenchymal change. Bony structure shows no acute osseous finding. Impression: 1. Slight scarring as noted above. 2. Nothing acute is appreciated. Diagnostic code #2
[2021-05-15] MEDS ORDERED: Dexamethasone 10 MG/ML SDV IVPUSH ONE (14:23)
[2021-05-15] MEDS: levETIRAcetam Soln 500 MG/5 ML Cup PO ONE (15:03)
[2021-05-15] MEDS ORDERED: Gadobenate Dimeglumine 529 MG/ML 20 ML SDV IVPUSH ONE (15:23)
[2021-05-15] MEDS ORDERED: Sodium Chloride 0.9% 10 ML Syringe FLUSH SCH (15:30)
--- NOTE | 2021-05-15 16:10 | MR ---
MRI brain (without and with intravenous contrast) Technique: T1 sagittal; T2, T2 FLAIR, T1 and diffusion axial; T1 FLAIR coronal; post-gadolinium T1 axial, sagittal and coronal images were also obtained. Findings: Large mass is noted within the right frontal region. There is subfalcine extension of this mass being seen. This mass shows diffuse enhancement. AP measurement in slightly oblique orientation is 8.7 cm, transverse measurement is 7.5 cm and AP measurement is 6.7 cm. Vasogenic edema is seen within the adjacent white matter. There is midline shift on the MRI of approximately 1.5 cm. No other abnormal parenchymal signal is seen. Visualized mastoid sinuses are within normal limits. Retention cyst is noted within the left maxillary sinus measuring 1.4 cm. Impression: 1. Large right frontal mass with subfalcine extension. Measurements as noted above. Neurosurgical evaluation is suggested. 2. Vasogenic edema is seen. 3. Midline shift of 1.5 cm. 4. No additional abnormality is appreciated intracranially. Diagnostic code #9
== END 2021-05-15 16:40 | disposition home or self-care (01) ==
LOC: JD.ED 10:44
DX: C71.0 Malignant neoplasm of cerebrum, except lobes and ventricles (principal); G40.209 Localization-related (focal) (partial) symptomatic epilepsy and epileptic syndromes with complex partial seizures, not intractable, without status epilepticus; N39.0 Urinary tract infection, site not specified; E11.65 Type 2 diabetes mellitus with hyperglycemia; I10 Essential (primary) hypertension; E11.9 Type 2 diabetes mellitus without complications; E66.9 Obesity, unspecified; Z68.30 Body mass index [BMI] 30.0-30.9, adult; Z87.891 Personal history of nicotine dependence; Z20.822 Contact with and (suspected) exposure to COVID-19; Z79.4 Long term (current) use of insulin; Z79.899 Other long term (current) drug therapy
CPT/HCPCS: 36415; 70450; 70553; 71045; 80053; 81001; 82947; 83735; 83880; 84484; 85025; 85379; 85610; 85652; 85730; 86140; 87086; 87088; 87186; 93005; 96365; 96375; 99285; A9270; A9577; J0696; J1100; J7030; U0002